=== PATIENT | female | born 1985 | race Caucasian/White ===

== ENCOUNTER 2019-07-29 20:58 | Emergency (ER) | payer OTHER ==
[~2019-07-29] VITALS: Ht 162.6 cm; Wt 61.2 kg
[2019-07-29 21:06] VITALS: Ht 162.6 cm; Wt 61.2 kg
[2019-07-29 21:38] VITALS: BP 126/89
== END 2019-07-29 21:38 | disposition other institution (70) ==
LOC: ED 20:58
DX: Z02.89 Encounter for other administrative examinations (principal)